=== PATIENT | male | born 1940 | race Caucasian/White ===

== ENCOUNTER 2021-02-11 11:08 | Day surgery (SDC) | payer MEDICARE ==
[~2021-02-11 11:08] MED LIST: Acetaminophen 500 MG TAB PO SCH; BAMLANIVIMAB 700 MG in Sodium Chloride 0.9% 250 ML 250 ML IVPB SCH; diphenhydrAMINE 50 MG/ML VIAL IVP SCH; diphenhydrAMINE 50 MG/ML VIAL ONE
== END 2021-02-11 12:30 | disposition home or self-care (01) ==
LOC: CSHSDC/OP 11:08
PROVIDERS: ATTEND Emergency Medicine
DX: Z23 Encounter for immunization (principal); U07.1 COVID-19
CPT/HCPCS: J1200

== ENCOUNTER 2024-01-15 17:28 | Outpatient (CLI) | payer MEDICARE | END 2024-01-15 17:29 | disposition home or self-care (01) | LOC: CSHRAD 17:28 | PROVIDERS: ATTEND Family Medicine | DX: M25.561 Pain in right knee (principal); M25.461 Effusion, right knee ==